=== PATIENT | male | born 1990 | race Caucasian/White ===

== ENCOUNTER 2021-08-30 12:57 | Outpatient (REF) | payer OTHER, SELFPAY ==
--- NOTE | 2021-08-30 13:12 | EEG_ITS ---
The waking background activity consists of a moderate voltage 9 to 10 hertz posterior alpha frequency that is seen symmetrically and attenuates well with eye opening while low-voltage fast frequencies predominate anteriorly. Drowsiness is characterized by diffuse theta slowing. During sleep symmetrical frontal central sleep spindles, vertex sharp transients, and K complexes seen. Arousals are unremarkable. Single blunted sharp and slow discharges seen in the right hemisphere with phase reversal at 10. Periods of bradycardia of 55 are noted during sleep. IMPRESSION: This 24-hour ambulatory EEG is considered within normal limits. MD SHARRON Jaffe/REYNALDO / [id number]
== END 2021-08-30 12:58 | disposition home or self-care (01) ==
LOC: HO.NEURO 12:57
PROVIDERS: Visit Provider Psychiatry & Neurology Neurology
DX: G40.909 Epilepsy, unspecified, not intractable, without status epilepticus (principal)
CPT/HCPCS: 95708; 95957